=== PATIENT | male | born 1935 | race Caucasian/White ===

== ENCOUNTER 2017-12-07 16:41 | Emergency (ER) | payer MEDICARE, BC ==
[2017-12-07 18:12] VITALS: BP 169/89
[2017-12-07] MEDS ORDERED: Ondansetron 4 MG Tab.DIS PO ONE (18:43)
--- NOTE | 2017-12-07 18:47 | EDM.PDOC ---
ED HPI GENERAL MEDICAL PROBLEM - General Chief Complaint: Gastrointestinal Problem Stated Complaint: ILLNESS Time Seen by Provider: 12/07/17 18:25 Source of Information: Reports: Patient History Limitations: Reports: No Limitations - History of Present Illness INITIAL COMMENTS - FREE TEXT/NARRATIVE: 82-year-old male felt fine overnight, slept well, got up this morning and took his medications. It was the first morning he took an extra potassium per instructions from his physician. Within the next hour he developed nausea and vomited several times. No diarrhea, no fever, no shortness of breath or chest pain. As the day has gone on he said no appetite and is still having "waves of nausea" but no emesis. He called his primary provider, he sent him in to the emergency room. Onset: Sudden (Symptoms started rather suddenly this morning) Severity: Moderate Associated Symptoms: Reports: Malaise, Nausea/Vomiting, Weakness. Denies: Fever /Chills, Headaches, Shortness of Breath - Related Data Allergies Allergy/AdvReac Type Severity Reaction Status Date / Time Sulfa (Sulfonamide Allergy Hives Verified 12/07/17 18:23 Antibiotics) Home Meds: Home Meds Aspirin [Mariana Chewable] 81 mg PO DAILY 03/24/14 [History] Metoprolol Succinate [Toprol XL] 25 mg PO DAILY 03/24/14 [History] amLODIPine Besylate [Amlodipine Besylate] 10 mg PO DAILY 03/24/14 [History] atorvaSTATin [Lipitor] 80 mg PO DAILY 03/24/14 [History] Multivitamin [Multivitamins] 1 each PO DAILY 09/16/16 [History] Chlorthalidone [Chlorthalidone] 25 mg PO DAILY 12/07/17 [History] Potassium Chloride 20 meq PO DAILY 12/07/17 [History] metFORMIN [Glucophage] 500 mg PO BID 12/07/17 [History] Past Medical History HEENT History: Reports: Cataract, Impaired Vision Cardiovascular History: Reports: CAD, Heart Murmur, High Cholesterol, Hypertension Respiratory History: Reports: Other (See Below) Other Respiratory History: pulmonary nodules Gastrointestinal History: Reports: Other (See Below) Other Gastrointestinal History: ulcers Genitourinary History: Reports: Renal Calculus Endocrine/Metabolic History: Reports: Diabetes, Type II - Infectious Disease History Infectious Disease History: Reports: Chicken Pox, Measles, Shingles - Past Surgical History Cardiovascular Surgical History: Reports: Coronary Artery Bypass Male Surgical History: Reports: Kidney Stone Extraction Social & Family History - Tobacco Use Smoking Status *Q: Former Smoker Used Tobacco, but Quit: Yes Month Tobacco Last Used: 30 Second Hand Smoke Exposure: No - Caffeine Use Caffeine Use: Reports: Tea - Recreational Drug Use Recreational Drug Use: No ED ROS GENERAL - Review of Systems Review Of Systems: See Below Constitutional: Reports: Malaise, Weakness, Decreased Appetite. Denies: Fever, Chills Respiratory: Denies: Shortness of Breath Cardiovascular: Denies: Chest Pain GI/Abdominal: Reports: Nausea, Vomiting. Denies: Abdominal Pain, Diarrhea : Reports: No Symptoms Skin: Reports: No Symptoms Neurological: Denies: Headache Psychiatric: Reports: No Symptoms ED EXAM, GI/ABD - Physical Exam Exam: See Below Exam Limited By: No Limitations General Appearance: Alert, No Apparent Distress Eyes: Bilateral: Normal Appearance (Normal hydration, no jaundice) Throat/Mouth: Normal Inspection Head: Atraumatic Respiratory/Chest: No Respiratory Distress, Lungs Clear Cardiovascular: Regular Rate, Rhythm, Systolic Murmur. No: Tachycardia GI/Abdominal Exam: Normal Bowel Sounds, Soft, Non-Tender Extremities: Normal Inspection. No: Pedal Edema Neurological: Alert, Oriented Psychiatric: Normal Affect, Normal Mood Course - Vital Signs Last Recorded V/S: Last Vital Signs Temp 99.1 F 12/07/17 18:23 Pulse 86 12/07/17 18:23 Resp 16 12/07/17 18:23 BP 169/89 H 12/07/17 18:23 Pulse Ox 94 L 12/07/17 18:23 - Orders/Labs/Meds Labs: Laboratory Tests 12/07/17 12/07/17 Range/Units 18:54 18:54 WBC 6.3 (4.5-11.0) K/uL RBC 4.59 (4.30-5.90) M/uL Hgb 14.9 (12.0-15.0) g/dL Hct 43.8 (40.0-54.0) % MCV 95 (80-98) fL MCH 33 H (27-31) pg MCHC 34 (32-36) % Plt Count 246 (150-400) K/uL Neut % (Auto) 73 H (36-66) % Lymph % (Auto) 11 L (24-44) % [place] % (Auto) 14 H (2-6) % Eos % (Auto) 1 L (2-4) % Baso % (Auto) 1 (0-1) % Sodium 136 L (140-148) mmol/L Potassium 4.0 (3.6-5.2) mmol/L Chloride 100 (100-108) mmol/L Carbon Dioxide 26 (21-32) mmol/L Anion Gap 14.0 (5.0-14.0) mmol/L BUN 17 (7-18) mg/dL Creatinine 1.2 (0.8-1.3) mg/dL Est Cr Clr Drug Dosing 49.85 mL/min Estimated GFR (MDRD) 58 L (>60) Glucose 155 H (74-106) mg/dL Calcium 9.7 (8.5-10.1) mg/dL Meds: Medications Discontinued Medications Generic Name Dose Route Start Last Admin Trade Name Freq PRN Reason Stop Dose Admin Ondansetron HCl 4 mg 12/07/17 18:43 12/07/17 18:49 Zofran Odt PO 12/07/17 18:44 4 mg ONETIME ONE Administration - Re-Assessments/Exams Free Text/Narrative Re-Assessment/Exam: 12/07/17 18:46 Patient does not know of any recent potassium level checks, a BMP and a CBC was drawn and the patient was given 4 mg of sublingual Zofran. He will then be given a small bland meal. 12/07/17 19:30 Electrolytes returned normal, CBC normal hemoglobin and white count. Patient had no further emesis but still felt some nausea after the medication. He did not want to try eating so this was not forced on him. He'll be discharged with 5 additional doses of Zofran to use every 6 hours, and will return if worsening. I also suggested he return to his regular dose of potassium and after his symptoms improved he may try to take the extra dose again to see if it is tolerated. Departure - Departure Time of Disposition: 20:06 Disposition: Home, Self-Care 01 Condition: Fair Clinical Impression: Vomiting - Discharge Information Instructions: Nausea and Vomiting, Adult, [id number] Referrals: Marcos Huber MD [Primary Care Provider] - Forms: ED Department Discharge Care Plan Goals: Frequent but small amounts of fluid to maintain hydration. Increase diet as tolerated. Use Zofran on your tongue for persistent nausea if needed. Consider rechecking in 24-48 hours if not improving satisfactorily, or return anytime sooner if worsening or concerns.
== END 2017-12-07 20:06 | disposition home or self-care (01) ==
LOC: JP.ED 16:41
DX: R11.2 Nausea with vomiting, unspecified (principal); E78.00 Pure hypercholesterolemia, unspecified; I10 Essential (primary) hypertension; E11.9 Type 2 diabetes mellitus without complications; Z79.84 Long term (current) use of oral hypoglycemic drugs; Z87.891 Personal history of nicotine dependence; Z79.82 Long term (current) use of aspirin; Z79.899 Other long term (current) drug therapy
CPT/HCPCS: 36415; 80048; 85025; 99284; A9270; 99283

== ENCOUNTER 2019-06-01 08:38 | Emergency (ER) | payer MEDICARE, BC ==
[2019-06-01 08:52] VITALS: BP 147/84; PULSE 75
[2019-06-01] MEDS ORDERED: Meclizine 25 MG Tab PO ONE (09:08)
--- NOTE | 2019-06-01 09:11 | EDM.PDOC ---
ED HPI GENERAL MEDICAL PROBLEM - General Chief Complaint: General Stated Complaint: DIZZINESS Time Seen by Provider: 06/01/19 09:03 Source of Information: Reports: Patient, Family, RN Notes Reviewed History Limitations: Reports: No Limitations - History of Present Illness INITIAL COMMENTS - FREE TEXT/NARRATIVE: 84-year-old gentleman presents emergency department today complaint of dizziness , he states the dizziness started earlier this morning it will come and go it is positional seems to be worse when he lies down he describes the dizziness as room spinning, does not have any difficulty walking he feels the dizziness is resolved when he sits up and has no dizziness at this time - Related Data Allergies Allergy/AdvReac Type Severity Reaction Status Date / Time Sulfa (Sulfonamide Allergy Hives Verified 12/07/17 18:23 Antibiotics) Home Meds: Home Meds Aspirin [Mariana Chewable] 81 mg PO DAILY 03/24/14 [History] Metoprolol Succinate [Toprol XL] 25 mg PO DAILY 03/24/14 [History] atorvaSTATin [Lipitor] 80 mg PO DAILY 03/24/14 [History] Multivitamin [Multivitamins] 1 each PO DAILY 09/16/16 [History] Chlorthalidone 25 mg PO DAILY 12/07/17 [History] Potassium Chloride 20 meq PO DAILY 12/07/17 [History] metFORMIN [Glucophage] 250 mg PO DAILY 12/07/17 [History] Allopurinol [Zyloprim] 300 mg PO DAILY 06/01/19 [History] Cholecalciferol (Vitamin D3) [Vitamin D] 1,000 mg PO DAILY 06/01/19 [History] Meclizine HCl 25 mg PO TID PRN #30 tab.chew 06/01/19 [Rx] Tamsulosin [Flomax] 0.4 mg PO DAILY 06/01/19 [History] Past Medical History HEENT History: Reports: Cataract, Impaired Vision Cardiovascular History: Reports: CAD, Heart Murmur, High Cholesterol, Hypertension Respiratory History: Reports: Other (See Below) Other Respiratory History: pulmonary nodules Gastrointestinal History: Reports: Other (See Below) Other Gastrointestinal History: ulcers Genitourinary History: Reports: Renal Calculus Endocrine/Metabolic History: Reports: Diabetes, Type II - Infectious Disease History Infectious Disease History: Reports: Chicken Pox, Measles, Shingles - Past Surgical History Cardiovascular Surgical History: Reports: Coronary Artery Bypass Male Surgical History: Reports: Kidney Stone Extraction Social & Family History - Tobacco Use Smoking Status *Q: Never Smoker - Caffeine Use Caffeine Use: Reports: Soda - Recreational Drug Use Recreational Drug Use: No ED ROS GENERAL - Review of Systems Review Of Systems: See Below Constitutional: Reports: No Symptoms HEENT: Reports: No Symptoms Respiratory: Reports: No Symptoms Cardiovascular: Reports: No Symptoms GI/Abdominal: Reports: No Symptoms Neurological: Reports: Dizziness ED EXAM, GENERAL - Physical Exam Exam: See Below Free Text/Narrative:: Cranial nerves II test with pupillary light reflex 4 mm to 2 mm bilaterally, CN III test pupillary constriction, lid elevation and eye abduction bilaterally, CN IV downward movement of eyes bilaterally, CN V good jaw movement, CN lateral deviation of the eyes bilaterally to finger movement, CN VII symmetrical smile shows teeth without difficulty, CN VIII pass finger rub to ears bilaterally, CN IX adequate voice and tone, CN X adequate voice and tone no difficulty swallowing, CN XI can shrug shoulders without difficulty, CN XII can stick tongue out without difficulty, cranial nerves II to XII intact as tested, power is 5 out 5 in upper and lower extremities, patellar reflex, biceps reflex +2 can do finger to nose without difficulty, no dysdiadochokinesis , no difficulty with rapid alternating movements can do [id number] without difficulty, Romberg is negative, has adequate gait can do heel to toe, no focal neurologic deficit Exam Limited By: No Limitations General Appearance: Alert, WD/WN, No Apparent Distress Respiratory/Chest: No Respiratory Distress Course - Vital Signs Last Recorded V/S: Last Vital Signs Temp 96.7 F 06/01/19 08:52 Pulse 75 06/01/19 08:52 Resp 18 06/01/19 08:52 BP 147/84 H 06/01/19 08:52 Pulse Ox 95 06/01/19 08:52 Orthostatic Blood Pressure [ 146/81 Standing] Orthostatic Blood Pressure [ 144/81 Sitting] Orthostatic Blood Pressure [ 144/57 Supine] - Orders/Labs/Meds Orders: Active Orders 24 hr Category Date Time Status EKG Documentation Completion [RC] ASDIRECTED Care 06/01/19 10:10 Active EKG 12 Lead [EK] Routine Ther 06/01/19 10:10 Ordered Meds: Medications Discontinued Medications Generic Name Dose Route Start Last Admin Trade Name Freq PRN Reason Stop Dose Admin Meclizine HCl 25 mg 06/01/19 09:08 06/01/19 09:21 Antivert PO 06/01/19 09:09 25 mg ONETIME ONE Administration Departure - Departure Time of Disposition: 11:04 Disposition: Home, Self-Care 01 Condition: Fair Clinical Impression: Dizziness - Discharge Information Prescriptions: Meclizine HCl 25 mg PO TID PRN #30 tab.chew PRN Reason: Dizziness Referrals: Marcos Huber MD [Primary Care Provider] - Forms: ED Department Discharge Additional Instructions: Try the meclizine as needed for symptomatic relief, Please followup with your primary care provider in 3-5 days if not better, please call return to the emergency department with worsening of symptoms. - My Orders Last 24 Hours: My Active Orders 06/01/19 10:10 EKG Documentation Completion [RC] ASDIRECTED EKG 12 Lead [EK] Routine - Assessment/Plan Last 24 Hours: My Active Orders 06/01/19 10:10 EKG Documentation Completion [RC] ASDIRECTED EKG 12 Lead [EK] Routine Plan: Assessment Acuity = acute Site and laterality = dizziness now resolved Etiology = [unclear etiology Manifestations = none Location of injury = Home Lab values = glucose was 206, EKG demonstrates sinus rhythm there is no T-wave inversion there is no atrial enlargement he does have left axis deviation old Q waves appreciated in lead 3 poor R-wave progression similar to EKG from 2013 Plan I did review lab work with him as well as EKG results, he would like to try meclizine at home therefore prescription 25 mg's by mouth 3 times a day when necessary total #30 faxed to [facility] follow-up with primary care 3-5 days if no improvement This note was dictated using [employer] recognition software please call with any questions on syntax or grammar.
== END 2019-06-01 11:13 | disposition home or self-care (01) ==
LOC: JP.ED 08:38
DX: R42 Dizziness and giddiness (principal); I10 Essential (primary) hypertension; E11.9 Type 2 diabetes mellitus without complications; Z88.2 Allergy status to sulfonamides; Z79.82 Long term (current) use of aspirin; Z79.899 Other long term (current) drug therapy; Z79.84 Long term (current) use of oral hypoglycemic drugs; Z95.1 Presence of aortocoronary bypass graft
CPT/HCPCS: 82962; 93005; 99284; A9270; 93010; 99283